=== PATIENT | female | born 1990 | race Two or more races ===

== ENCOUNTER 2023-04-15 18:53 | Emergency (ER) | payer OTHER ==
[~2023-04-15] VITALS: Ht 157.5 cm; Wt 85.3 kg
== END 2023-04-15 22:47 | disposition home or self-care (01) ==
LOC: ER 18:53
DX: O20.9 Hemorrhage in early pregnancy, unspecified (principal); Z3A.01 Less than 8 weeks gestation of pregnancy

== ENCOUNTER → 2023-10-07 | Emergency (ER) | payer OTHER ==
[~2023-10-07] VITALS: Ht 157.5 cm; Wt 91.2 kg
[~2023-10-07] MED LIST: OBSTETRIX DHA1 EAC1 PO
== END | disposition left against medical advice (07) ==
LOC: ER 21:03
DX: Z53.21 Procedure and treatment not carried out due to patient leaving prior to being seen by health care provider (principal)

== ENCOUNTER 2023-10-10 14:01 | Emergency (ER) | payer OTHER ==
[~2023-10-10] VITALS: Ht 157.5 cm; Wt 91.2 kg
== END 2023-10-10 18:33 | disposition home or self-care (01) ==
LOC: ER 14:02
DX: B02.9 Zoster without complications (principal)